=== PATIENT | female | born 2000 | race Caucasian/White ===

== ENCOUNTER 2025-10-31 00:33 | Inpatient (IN) ==
[2025-10-31 01:20] LABS: MEAN PLATELET VOLUME 8.1 fL (7.4-11.0); RED CELL DISTRIBUTION WIDTH 13.1 % (11.6-16.5)
[2025-10-31 01:28] LABS: CREATININE 0.60 mg/dL (0.55-1.02); eGFR NON BLACK RACES > 60 (>60)
[2025-10-31 02:11] LABS: HCG,QUANTITATIVE 2055 mIU/mL (0-6)
[2025-10-31 02:39] LABS: BLOOD/HEMOGLOBIN,URINE 5+ (NEGATIVE); LEUKOCYTE ESTERASE ,URINE NEGATIVE (NEGATIVE); NITRITES,URINE NEGATIVE (NEGATIVE)
[2025-10-31 02:59] LABS: APPEARANCE,URINE CLEAR (CLEAR); CALCIUM OXALATE CRYSTALS,UR FEW /HPF (NEGATIVE); SQUAMOUS EPITHELIAL CELL,UR FEW /HPF (NEGATIVE)
[2025-10-31] MEDS: TYLENOL 500 MG TAB EXTRA STRENGTH PO ONE ×2 (03:00→05:19)
--- NOTE | 2025-10-31 03:23 | DR.VAGB ---
HPI Time Seen Time Seen by Provider: 10/31/25 03:16 PCP Primary Care Physician: BRITTANY HPI Comment HPI Comment: According to pt she had preg test done on Sep 22 which was pos. She went to see [facility] Sep 27 and was given medication for chemical miscarriage .Pt completed the medication. Couple of days later, she had significant vaginal bleeding and then resolved .Pt did not follow up with clinic in [place] afterwards as she thought she has had miscarriage .She experienced intermittent vaginal spotting over a week ago again which slowly worsened .She also noticed abdominal pain as well as foul smell. Pt was seen in another hospital ER on 10/29.Did have ultrasound vaginal done which showed gestational sac in uterus without heart beat and beta hcg quant 6134.Pt was advised to f/u in couple of days. Instead of going back to previous hospital ER she has come to see us indicating that vaginal bleeding has worsened and that she had chills and cont to experience foul smelling odour and she is concerned she may have sepsis Complaint Chief Complaint:: vaginal bleeding Source History Provided: Patient Mode of Arrival Mode of Arrival: Ambulatory Timing Onset of Chief Complaint: 10/30/25 PMH PMH Past Medical History: No Past Surgical History: Yes Surgical History: Ortho Surgery Past Surgical History Comment: ORTH O Family History History of Family Medical Conditions: No Family Medical History: Diabetes Mellitus and Hypertension Social History Does patient currently use any type of tobacco product: No Have you used tobacco products in the last 12 months: No Type of Tobacco Use: None Does any household member use tobacco: No Alcohol Use: None Do you use any recreational Drugs:: No Lives With: Family Lives Where: Home Travel Risk Coronavirus risk:travel/contact w/high risk person: No Has patient experienced Coronavirus symptoms: No Infectious screening In the last 2 months have you had wt loss of >10#?: NO Have you had fever, night sweats or hemotysis?: No Have you traveled outside the country in the last 6 months?: No Isolation: Standard ROS Review of Systems Constitutional: Chills Eyes: No Symptoms Reported ENTM: No Symptoms Reported Respiratoy: No Symptoms Reported Cardiovascular: No Symptoms Reported Gastrointestinal/Abdominal: Abdominal Pain Genitourinary: No Symptoms Reported Neurological: No Symptoms Reported Musculoskeletal: No Symptoms Reported Integumentary: No Symptoms Reported Hematologic/Lymphatic: No Symptoms Reported Endocrine: No Symptoms Reported PE Vital Signs Vitals: Vital Signs Temperature 98.4 F Pulse Rate 81 Pulse Rate 86 Pulse Rate 90 Pulse Rate 85 Pulse Rate 82 Pulse Rate 80 Pulse Rate 89 Pulse Rate 94 Respiratory Rate 20 Respiratory Rate 20 Respiratory Rate 20 Respiratory Rate 20 Respiratory Rate 20 Blood Pressure 125/57 Blood Pressure 108/53 Blood Pressure 121/60 Blood Pressure 128/67 O2 Sat by Pulse Oximetry 98 O2 Sat by Pulse Oximetry 98 O2 Sat by Pulse Oximetry 99 O2 Sat by Pulse Oximetry 100 O2 Sat by Pulse Oximetry 98 O2 Sat by Pulse Oximetry 98 O2 Sat by Pulse Oximetry 98 O2 Sat by Pulse Oximetry 99 General Limitations: No Limitations General Appearance: Alert, In No Apparent Distress and Anxious Head Head Exam: Normal Inspection, Atraumatic and Normocephalic Eyes Eye exam: Normal Appearance, PERRL and EOMI ENT ENT Exam: Mucous Membranes Moist Neck Neck Exam: Normal Inspection Chest Chest Inspection: Normal Inspection Respiratory Respiratory Exam: Normal Lung Sounds Bilat Respiratory Exam: Bilateral: Clear to Auscultation Cardiovascular Cardiovascular Exam: +S1 and +S2 Abdominal Exam Abdominal Exam: Normal Bowel Sounds, Soft and Tenderness Abdominal Tenderness: Suprapubic and Moderate Genitourinary External Exam: Female: Deferred Neurologic Neurological Exam: Alert Skin Skin Exam: Normal Color MDM Additional Information Obtained Additional Information Obtained: Old records Differential diagnosis Diffenential diagnosis: Incomplete and Other (abdominal pain) COURSE Treatment Treatment: labs ,beta hcg quant ,transvaginal u/s ,tylenol ROR Labs Reviewed Laboratory Results Reviewed?: Yes 10/31/25 01:00 10/31/25 01:00 Laboratory: WBC 13.7 X10^3/uL (3.6-10.0) H 10/31/25 01:00 RBC 3.94 X10^6/uL (3.5-5.4) 10/31/25 01:00 Hgb 11.8 g/dL (12.0-16.0) L 10/31/25 01:00 Hct 34.8 % (36.0-47.0) L 10/31/25 01:00 MCV 88.4 fL (80.0-100.0) 10/31/25 01:00 MCH 29.9 pg (27.0-34.0) 10/31/25 01:00 MCHC 33.8 g/dL (33.0-35.0) 10/31/25 01:00 RDW 13.1 % (11.6-16.5) 10/31/25 01:00 Plt Count 249 X10^3/uL (150.0-450.0) 10/31/25 01:00 MPV 8.1 fL (7.4-11.0) 10/31/25 01:00 Neut % (Auto) 77.7 % (42.0-75.0) H 10/31/25 01:00 Lymph % (Auto) 15.6 % (21.0-51.0) L 10/31/25 01:00 [place] % (Auto) 5.7 % (0.0-13.0) 10/31/25 01:00 Eos % (Auto) 0.8 % (0.9-2.9) L 10/31/25 01:00 Baso % (Auto) 0.2 % (0.2-1.0) 10/31/25 01:00 Neut # (Auto) 10.6 x10^3/uL (2.2-4.8) H 10/31/25 01:00 Lymph # (Auto) 2.1 X10^3/uL (1.3-2.9) 10/31/25 01:00 [place] # (Auto) 0.8 x10^3/uL (0.3-0.8) 10/31/25 01:00 Eos # (Auto) 0.1 x10^3/uL (0.0-0.2) 10/31/25 01:00 Baso # (Auto) 0.0 X10^3/uL (0.0-0.1) 10/31/25 01:00 Absolute Nucleated RBC 0.1 /100WBC 10/31/25 01:00 Sodium 139 mmol/L (136-145) 10/31/25 01:00 Corrected Sodium TNP 10/31/25 01:00 Potassium 3.4 mmol/L (3.5-5.1) L 10/31/25 01:00 Chloride 102 mmol/L (98-107) 10/31/25 01:00 Carbon Dioxide 26.3 mmol/L (21-32) 10/31/25 01:00 BUN 10 mg/dL (7-18) 10/31/25 01:00 Creatinine 0.60 mg/dL (0.55-1.02) 10/31/25 01:00 Est GFR (MDRD) Af Amer > 60 (>60) 10/31/25 01:00 Est GFR (MDRD) Non-Af > 60 (>60) 10/31/25 01:00 Glucose 89 mg/dL (65-99) 10/31/25 01:00 Calcium 8.3 mg/dL (8.5-10.1) L 10/31/25 01:00 Corrected Calcium TNP 10/31/25 01:00 Total Bilirubin 0.20 mg/dL (0.2-1.0) 10/31/25 01:00 AST 18 Units/L (15-37) 10/31/25 01:00 ALT 26 Units/L (12-78) 10/31/25 01:00 Alkaline Phosphatase 69 Units/L (46-116) 10/31/25 01:00 Total Protein 7.0 g/dL (6.4-8.2) 10/31/25 01:00 Albumin 3.4 g/dL (3.4-5.0) 10/31/25 01:00 Globulin 3.6 g/dL (2.5-4.5) 10/31/25 01:00 Albumin/Globulin Ratio 0.9 Ratio (1.1-2.1) L 10/31/25 01:00 HCG, Quant 2055 mIU/mL (0-6) H 10/31/25 01:00 Specimen Type Clean catch urine 10/31/25 02:20 Urine Color Pale yellow (YELLOW) 10/31/25 02:20 Urine Appearance Clear (CLEAR) 10/31/25 02:20 Urine pH 5.0 (5.0 - 8.0) 10/31/25 02:20 Ur Specific [place] 1.030 (1.000-1.030) 10/31/25 02:20 Urine Protein 1+ (NEGATIVE) 10/31/25 02:20 Urine Glucose (UA) Negative (NEGATIVE) 10/31/25 02:20 Urine Ketones Negative (NEGATIVE) 10/31/25 02:20 Urine Blood 5+ (NEGATIVE) 10/31/25 02:20 Urine Nitrite Negative (NEGATIVE) 10/31/25 02:20 Urine Bilirubin Negative (NEGATIVE) 10/31/25 02:20 Urine Urobilinogen Normal (NORMAL) 10/31/25 02:20 Ur Leukocyte Esterase Negative (NEGATIVE) 10/31/25 02:20 Urine RBC 10-20 /HPF (0-3) A 10/31/25 02:20 Urine WBC None seen /HPF (0-5) 10/31/25 02:20 Ur Squamous Epith Cells Few /HPF (NEGATIVE) 10/31/25 02:20 Calcium Oxalate Crystal Few /HPF (NEGATIVE) 10/31/25 02:20 Urine Bacteria Negative /HPF (NEGATIVE) 10/31/25 02:20 Ur Culture Indicated? No/not indicated 10/31/25 02:20 Opioid Opioid Risk Tool Age ([place]amo box if 16-45): Yes Total: 1 Total Score Risk Category: Low Risk Copyright: Darwin IZQUIERDO predicting aberrant behaviors Discharge Plan Diagnosis Discharge Problem: Retained products of conception after miscarriage, Acute endometritis Discharge Plan Patient Disposition: ADMITTED INPATIENT Condition: Stable Prescriptions: No Action cephalexin 500 mg capsule 500 mg PO TID Health Concerns: Post Hospitalization: new medications and changes needed to prevent readmission or further decline. Pt educated and given instructions on all concerns. Plan of Treatment: Continue with present treatment and follow up plan. Pt is to keep follow up appointment as instructed and take medications as ordered. Orders to Discharge Patient Discharge Orders: Transfer (Routine); Ordered 10/31/25 Ordered By: Uvaldo Mendez Follow ups/Referrals Follow ups/Referrals: NFD,None [Primary Care Provider] - 3 days Instructions Stand Alone Forms: Find Help Web Site, Post Hospital Follow Up Care Print Language: AU[place] Provider Note Additional Notes pt wbc over 13,trans vaginal ultrasound pos retained product of conception without heartbeat and decreasing beta hcg quant ,abdominal pain with tenderness, foul smelling odor and chills were discussed with dr Melara. Agreed to have patient admitted for IV antibiotic and d and c .Pt agrees with plan
--- NOTE | 2025-10-31 04:24 | US ---
PROCEDURE: Obstetrical ultrasound less and 14 weeks endovaginal study. HISTORY: PT 7 WEEKS IUP, TOOK PILL 4 WEKS AGO HEAVY BLEEDING, FOUL ODOR POSSIBLE PRODUCTS OF CONCEPTION; . TECHNIQUE: [place] scale, M-mode, and color Doppler evaluation was performed of the fetus and maternal pelvis endovaginal. COMPARISON: None. TECHNICAL QUALITY: Satisfactory. FINDINGS: Uterus measures 10.5 x 5.1 x 5.8 cm in size and appears anteverted with no masses. Gestational sac in the endometrium with questionable pole consistent with 7 weeks 0 day gestation and no heart rate. Yolk sac not visualized. No subchorionic hemorrhage. Normal right ovary at 3.1 x 1.6 x 2.5 cm with color Doppler flow. Normal left ovary at 3.0 x 1.2 x 2.5 cm with color Doppler flow. No masses or fluid in the pelvis. IMPRESSION: 1. Gestational sac with questionable pole and no heart rate or yolk sac consistent with demise and utero. pole is consistent with 7 weeks 0 day gestation. 2. No other abnormality identified. THIS IS AN ELECTRONICALLY VERIFIED FINAL REPORT 10/31/2025 4:20 AM - Electronically signed by Liban Kelly MD
[2025-10-31] MEDS: VIBRAMYCIN PO SCH (05:03)
[2025-10-31] MEDS ORDERED: ULTANE GAS IN ONE (05:04)
[2025-10-31] MEDS ORDERED: XYLOCAINE 2 % (PLAIN) ONE (05:04)
[2025-10-31] MEDS: AMPICILLIN-SULBACTAM 3 GM VIAL 3 G in NS 100 ML IV 100 ML IV ONE (05:40)
[2025-10-31] MEDS: HIBICLENS WASH EXT ONE (06:30)
[2025-10-31 06:42] VITALS: BMI 22.1
[2025-10-31] MEDS: VERSED ONE (08:25)
[2025-10-31] MEDS: FENTANYL VIAL INJ 100 mcg ONE (08:25)
[2025-10-31] MEDS: REGLAN INJ 10 MG VIAL ONE (08:27)
[2025-10-31] MEDS: ZOFRAN INJ 4 MG VIAL ONE (08:27)
[2025-10-31] MEDS: TORADOL 30 MG VIAL ONE (08:27)
[2025-10-31] MEDS: OFIRMEV IV 1000 MG VIAL 1,000 MG/100 ML VIAL IV ONE (08:29)
[2025-10-31] MEDS: PEPCID 20 MG VIAL ONE (08:29)
[2025-10-31] MEDS: LR 1,000 ML IV 500 ML IV PRN (08:30)
[2025-10-31] MEDS: VERSED IVP PRN (08:39)
[2025-10-31] MEDS: PEPCID 20 MG VIAL IVP PRN (08:40)
[2025-10-31] MEDS: REGLAN INJ 10 MG VIAL IVP PRN (08:40)
[2025-10-31] MEDS: ZOFRAN INJ 4 MG VIAL IVP PRN (08:40)
[2025-10-31] MEDS: LR 1,000 ML IV 1,000 ML IV ONE (08:44)
[2025-10-31] MEDS: ANCEF VIAL 1 GRAM ONE (08:45)
[2025-10-31] MEDS: NS 100 ML IV 100 ML ONE (08:45)
[2025-10-31] MEDS: ANCEF VIAL 1 GRAM IV PRN (08:45)
[2025-10-31] MEDS: BETADINE SOLN ONE (08:50)
[2025-10-31] MEDS: FENTANYL VIAL INJ 100 mcg IVP PRN (08:55)
[2025-10-31] MEDS: XYLOCAINE 2 % (PLAIN) IVP PRN (08:56)
[2025-10-31] MEDS: DIPRIVAN VIAL 140 ML IVP PRN (08:56)
[2025-10-31] MEDS: EPHEDRINE SULFATE INJ ONE (08:58)
[2025-10-31] MEDS: EPHEDRINE SULFATE INJ IVP PRN (08:59)
[2025-10-31] MEDS: TORADOL 30 MG VIAL IVP PRN (09:05)
[2025-10-31] MEDS ORDERED: ZOFRAN INJ 4 MG VIAL IVP PRN (09:06)
[2025-10-31] MEDS ORDERED: BENADRYL INJ 50 MG VIAL IVP PRN (09:06)
[2025-10-31] MEDS ORDERED: DILAUDID INJ IVP PRN (09:06)
[2025-10-31] MEDS ORDERED: BARHEMSYS INJ IVP PRN (09:06)
[2025-10-31] MEDS ORDERED: REGLAN INJ 10 MG VIAL IVP PRN (09:06)
[2025-10-31] MEDS: OFIRMEV IV 1000 MG VIAL 1,000 MG/100 ML VIAL IV PRN (09:10)
[2025-10-31] MEDS: AMPICILLIN-SULBACTAM 3 GM VIAL 3 G in NS 100 ML IV 100 ML IV SCH (12:45)
[2025-10-31] MEDS: NS 250 ML IV 250 ML IV ONE (23:23)
[2025-11-01 04:02] VITALS: RESP 19
[2025-11-01 05:31] LABS: MEAN PLATELET VOLUME 8.2 fL (7.4-11.0); RED CELL DISTRIBUTION WIDTH 12.8 % (11.6-16.5)
[2025-11-01 05:46] LABS: COR CA(FOR HYPOALB) 9.1 mg/dL (8.5-10.1); CREATININE 0.52 mg/dL (0.55-1.02); eGFR NON BLACK RACES > 60 (>60)
[2025-11-01] MEDS ORDERED: CONSULT PHARMACY - POTASSIUM & MAGNESIUM XX SCH ×2 (06:00→08:00)
[2025-11-01 07:42] VITALS: BP 104/51; PULSE 69; TEMP 98.3; O2SAT 98
[2025-11-01] MEDS: MAG-OX TAB PO SCH (08:05)
[2025-11-01] MEDS: K-DUR TAB 20 MEQ PO ONE (08:05)
== END 2025-11-01 10:45 | disposition home or self-care (01) | DRG 770 ==
LOC: MED/SURG 00:33 → ER 00:33 → OBSVTOIN 05:04 → MED/SURG 05:30
PROVIDERS: ADMIT Obstetrics & Gynecology Obstetrics; ATTEND Obstetrics & Gynecology Obstetrics
DX: O04.5 Genital tract and pelvic infection following (induced) termination of pregnancy; E87.6 Hypokalemia; O04.89 (Induced) termination of pregnancy with other complications; D72.828 Other elevated white blood cell count; E83.42 Hypomagnesemia; E83.51 Hypocalcemia